=== PATIENT | female | born 1990 | race African-American/Black ===

== ENCOUNTER 2017-01-04 09:43 | Emergency (ER) | payer BC, OTHER ==
[~2017-01-04] VITALS: Ht 165.1 cm; Wt 99.8 kg
[2017-01-04] MEDS ORDERED: NAPROSYN500 MG PO (10:46)
[2017-01-04] MEDS ORDERED: TIZANIDINE HCL4 MG PO (10:46)
[2017-01-04 10:53] VITALS: BP 138/83
== END 2017-01-04 11:01 | disposition home or self-care (01) ==
LOC: ER 09:43
DX: M94.0 Chondrocostal junction syndrome [Tietze] (principal)